=== PATIENT | female | born 1970 | race Caucasian/White ===

== ENCOUNTER → 2019-12-02 06:00 | Outpatient (CLI) | payer OTHER ==
[~2019-12-02 06:00] MED LIST: SYNTHROID100 MCG PO; [UNRECOGNIZED DRUG - OTHER] PO
== END | disposition home or self-care (01) ==
LOC: LAB 06:00 → ADM 07:15 → CIR.AMB 12-09 07:15 → EDSTATUS 12-09 07:15
DX: N39.3 Stress incontinence (female) (male) (principal); Z01.818 Encounter for other preprocedural examination

== ENCOUNTER 2020-06-15 06:05 | Day surgery (SDC) | payer OTHER ==
[~2020-06-15 06:05] MED LIST changes: +TOPAMAX50 MG PO
== END 2020-06-15 15:08 | disposition home or self-care (01) ==
LOC: CIR.AMB 06:05
PROVIDERS: ATTEND Urology
DX: N39.3 Stress incontinence (female) (male) (principal); Z20.828 Contact with and (suspected) exposure to other viral communicable diseases
CPT/HCPCS: 57288; C1771